=== PATIENT | female | born 1950 | race American Indian/Alaskan Native ===

== ENCOUNTER 2017-03-02 08:25 | Outpatient (CLI) | payer OTHER ==
--- NOTE | 2017-03-02 09:19 | XRay Report ---
LEFT KNEE, 3 VIEWS History: Left knee pain. Findings: Moderate tricompartmental osteoarthritic changes are identified. No evidence for fracture or bone lesion. Small joint effusion extends to the suprapatellar bursa. Impression: Moderate osteoarthritic changes. Joint effusion. No acute process noted.
--- NOTE | 2017-03-02 09:20 | XRay Report ---
BILATERAL SHOULDERS, 3 VIEWS HISTORY: Bilateral shoulder pain, right shoulder pain. FINDINGS: Mild osteoarthritic changes are identified bilaterally. No evidence for fracture, dislocation or ligamentous injury. The soft tissues are within normal limits. IMPRESSION: Osteoarthritic changes. No acute process.
== END 2017-03-02 08:26 | disposition home or self-care (01) ==
LOC: XRAY 08:25
PROVIDERS: ATTEND Internal Medicine
DX: M25.462 Effusion, left knee (principal); M25.511 Pain in right shoulder; M25.512 Pain in left shoulder